=== PATIENT | female | born 1950 | race Caucasian/White ===

== ENCOUNTER → 2016-08-20 | Outpatient (CLI) | payer OTHER ==
[2016-08-20 17:43] LABS: BASO % 0.3 %; BASO ABS # 0.02 K/uL (0-0.2); COMPLETE YES; EOS % 1.9 %; HEMATOCRIT 41.7 % (37-47); IG% 0.3 %; LYMPH ABS # 1.49 K/uL (1.2-3.4); MEAN CELL VOLUME 98.8 fL (80-100); MEAN CORPUSCULAR HEMOGLOBIN 32.5 pg (25-34); MEAN CORPUSCULAR HGB CONC 32.9 g/dl (32-36); MEAN PLATELET VOLUME 12.6 fL (7.4-10.4); MONO % 8.8 %; NEUT % 66.7 %; PLATELET COUNT 225 K/uL (130-400); RED BLOOD COUNT 4.22 M/uL (4.2-5.4); WHITE BLOOD COUNT 6.78 K/uL (4.8-10.8)
[2016-08-20 17:52] LABS: BLOOD UREA NITROGEN 28 mg/dl (7-18); BUN/CREATININE RATIO 21.9 (10-20); CALCIUM 9.3 mg/dl (8.5-10.1); CARBON DIOXIDE 29 mmol/L (21-32); CHLORIDE 103 mmol/L (98-107); GLUCOSE 116 mg/dl (70-99); MAGNESIUM 1.5 mg/dl (1.8-2.4); POTASSIUM 3.4 mmol/L (3.5-5.1); SODIUM 141 mmol/L (136-145)
[2016-08-20 17:53] LABS: PHOSPHORUS 2.7 mg/dl (2.5-4.9)
[2016-08-20 18:04] LABS: URINE PROTIEN/CREAT RATIO 0.2 (0-0.2)
[2016-08-20 18:08] LABS: URINE APPEARANCE CLEAR (CLEAR); URINE BILIRUBIN NEG (NEG); URINE COLOR YELLOW; URINE EPITHELIAL CELL AUTO 20-30 /lpf (0-5); URINE NITRITE NEG (NEG); UROBILINOGEN NEG (NEG); ZZUR CULT IF INDIC CLEAN CATCH NO
[2016-08-20 18:15] LABS: MANUAL MICROSCOPIC REQUIRED? NO; REVIEW REQ? NO
== END | disposition home or self-care (01) ==
LOC: C.LABPBG 11:34
PROVIDERS: ATTEND Internal Medicine Nephrology
DX: N18.3 Chronic kidney disease, stage 3 (moderate) (principal)

== ENCOUNTER → 2016-09-29 | Outpatient (CLI) | payer OTHER | END | disposition home or self-care (01) | LOC: C.MAMM 10:40 | PROVIDERS: ATTEND Internal Medicine Nephrology | DX: E21.3 Hyperparathyroidism, unspecified (principal); M85.839 Other specified disorders of bone density and structure, unspecified forearm ==

== ENCOUNTER → 2017-02-23 | Outpatient (CLI) | payer OTHER ==
[2017-02-23 17:50] LABS: BASO % 0.3 %; BASO ABS # 0.02 K/uL (0-0.2); COMPLETE YES; EOS % 2.7 %; HEMATOCRIT 44.7 % (37-47); IG% 0.1 %; LYMPH % 18.5 %; LYMPH ABS # 1.36 K/uL (1.2-3.4); MEAN CELL VOLUME 99.3 fL (80-100); MEAN CORPUSCULAR HEMOGLOBIN 32.4 pg (25-34); MEAN CORPUSCULAR HGB CONC 32.7 g/dl (32-36); MONO % 10.3 %; NEUT % 68.1 %; PLATELET COUNT 217 K/uL (130-400); WHITE BLOOD COUNT 7.36 K/uL (4.8-10.8)
[2017-02-23 17:59] LABS: URINE APPEARANCE CLEAR (CLEAR); URINE BILIRUBIN NEG (NEG); URINE COLOR YELLOW; URINE EPITHELIAL CELL AUTO >30 /lpf (0-5); URINE NITRITE NEG (NEG); URINE PH 5.5 (4.5-7.5); UROBILINOGEN NEG (NEG); ZZUR CULT IF INDIC CLEAN CATCH NO
[2017-02-23 18:00] LABS: BLOOD UREA NITROGEN 39 mg/dl (7-18); BUN/CREATININE RATIO 30.2 (10-20); CALCIUM 9.3 mg/dl (8.5-10.1); CARBON DIOXIDE 24 mmol/L (21-32); CHLORIDE 108 mmol/L (98-107); GLUCOSE 91 mg/dl (70-99); MAGNESIUM 1.4 mg/dl (1.8-2.4); POTASSIUM 3.2 mmol/L (3.5-5.1); SODIUM 140 mmol/L (136-145)
[2017-02-23 18:01] LABS: PHOSPHORUS 2.3 mg/dl (2.5-4.9)
[2017-02-23 18:08] LABS: MANUAL MICROSCOPIC REQUIRED? NO; REVIEW REQ? NO
[2017-02-23 18:13] LABS: URINE PROTIEN/CREAT RATIO 0.2 (0-0.2); URINE TOTAL PROTEIN 28.7 mg/dl (0-11.9)
== END | disposition home or self-care (01) ==
LOC: C.LABPBG 11:16
PROVIDERS: ATTEND Internal Medicine Nephrology
DX: N18.3 Chronic kidney disease, stage 3 (moderate) (principal)

== ENCOUNTER → 2017-06-17 | Outpatient (CLI) | payer OTHER ==
[2017-06-17 12:03] LABS: BASO % 0.4 %; BASO ABS # 0.03 K/uL (0-0.2); EOS % 2.5 %; EOS ABS # 0.19 K/uL (0-0.5); HEMATOCRIT 43.6 % (37-47); HEMOGLOBIN 14.1 g/dL (12.0-16.0); IG# 0.01 K/uL (0.00-0.02); LYMPH % 18.6 %; MEAN CELL VOLUME 100.2 fL (80-100); MEAN CORPUSCULAR HEMOGLOBIN 32.4 pg (25-34); MEAN CORPUSCULAR HGB CONC 32.3 g/dl (32-36); MEAN PLATELET VOLUME 11.7 fL (7.4-10.4); MONO % 7.3 %; MONO ABS # 0.55 K/uL (0.11-0.59); NEUT % 71.1 %; NEUT ABS # 5.34 K/uL (1.4-6.5); PLATELET COUNT 257 K/uL (130-400); RED CELL DISTRIBUTION WIDTH CV 12.5 % (11.5-14.5); RED CELL DISTRIBUTION WIDTH SD 45.8 fL (36.4-46.3); WHITE BLOOD COUNT 7.52 K/uL (4.8-10.8)
[2017-06-17 12:38] LABS: BLOOD UREA NITROGEN 24 mg/dl (7-18); CALCIUM 9.4 mg/dl (8.5-10.1); CARBON DIOXIDE 31 mmol/L (21-32); CREATININE 1.11 mg/dl (0.60-1.20); GLUCOSE 99 mg/dl (70-99); POTASSIUM 3.9 mmol/L (3.5-5.1); SODIUM 138 mmol/L (136-145)
[2017-06-17 12:41] LABS: CHOLESTEROL 226 mg/dl (0-200); LDL CHOLESTEROL CALCULATED 118 mg/dl; PHOSPHORUS 2.6 mg/dl (2.5-4.9)
== END | disposition home or self-care (01) ==
LOC: C.LABPBG 09:40
PROVIDERS: ATTEND Internal Medicine Nephrology
DX: N18.3 Chronic kidney disease, stage 3 (moderate) (principal); E78.5 Hyperlipidemia, unspecified; E21.3 Hyperparathyroidism, unspecified

== ENCOUNTER → 2017-12-23 | Outpatient (CLI) | payer OTHER ==
[~2017-12-23] MED LIST: ACET-1256 PO; AMLO10TA4 PO; CALC-354 PO; CHOL20007 PO; DICY10CA12 PO; HYG/25 PO; MELO15TA10 PO; OMEP-334 PO; POTA1CAP53 PO; PRED1SUS3 OPL; VITACAP26 PO
[2017-12-23 16:55] LABS: BASO % 0.4 %; BASO ABS # 0.03 K/uL (0-0.2); EOS ABS # 0.16 K/uL (0-0.5); HEMATOCRIT 41.2 % (37-47); HEMOGLOBIN 13.7 g/dL (12.0-16.0); IG# 0.01 K/uL (0.00-0.02); LYMPH % 20.5 %; LYMPH ABS # 1.63 K/uL (1.2-3.4); MEAN CELL VOLUME 98.1 fL (80-100); MEAN CORPUSCULAR HEMOGLOBIN 32.6 pg (25-34); MEAN CORPUSCULAR HGB CONC 33.3 g/dl (32-36); MONO % 8.2 %; MONO ABS # 0.65 K/uL (0.11-0.59); NEUT % 68.8 %; NEUT ABS # 5.47 K/uL (1.4-6.5); PLATELET COUNT 234 K/uL (130-400); RED CELL DISTRIBUTION WIDTH CV 12.7 % (11.5-14.5); RED CELL DISTRIBUTION WIDTH SD 45.6 fL (36.4-46.3); WHITE BLOOD COUNT 7.95 K/uL (4.8-10.8)
[2017-12-23 18:04] LABS: BLOOD UREA NITROGEN 32 mg/dl (7-18); CALCIUM 9.2 mg/dl (8.5-10.1); CARBON DIOXIDE 27 mmol/L (21-32); CREATININE 1.25 mg/dl (0.60-1.20); GLUCOSE 90 mg/dl (70-99); PHOSPHORUS 2.7 mg/dl (2.5-4.9); POTASSIUM 3.7 mmol/L (3.5-5.1); SODIUM 138 mmol/L (136-145)
== END | disposition home or self-care (01) ==
LOC: C.LABPBG 11:35
PROVIDERS: ATTEND Internal Medicine Nephrology
DX: N18.3 Chronic kidney disease, stage 3 (moderate) (principal)

== ENCOUNTER 2019-01-11 10:11 | Inpatient (IN) ==
--- NOTE | 2018-12-20 12:56 | PAT Medication Instructions ---
Medication Instructions Date of Service December 20, 2018 Home Medications acetaminophen [Tylenol Extra Strength] 500 mg PO Q6H PRN amlodipine 10 mg PO QAM ascorbic acid (vitamin C) 1 g PO DAILY calcium carbonate-vitamin D3 1 tab PO DAILY cholecalciferol (vitamin D3) 2,000 unit PO DAILY dicyclomine 10 mg PO TID meloxicam 15 mg PO 3XWK omeprazole 40 mg PO QAM prednisolone acetate 1 drp OPHTHALMIC (EYE) DAILY ASK your surgeon for instructions meloxicam 15 mg PO 3XWK DO NOT take the morning of surgery ascorbic acid (vitamin C) 1 g PO DAILY calcium carbonate-vitamin D3 1 tab PO DAILY cholecalciferol (vitamin D3) 2,000 unit PO DAILY dicyclomine 10 mg PO TID Take morning of surgery With a small sip of water, OTHERWISE NOTHING TO EAT OR DRINK AFTER MIDNIGHT: acetaminophen [Tylenol Extra Strength] 500 mg PO Q6H PRN (if needed, may be taken up to four hours before surgery) amlodipine 10 mg PO QAM omeprazole 40 mg PO QAM prednisolone acetate 1 drp OPHTHALMIC (EYE) DAILY Take evening before surgery acetaminophen [Tylenol Extra Strength] 500 mg PO Q6H PRN (if needed) dicyclomine 10 mg PO TID Other Notes If you have any questions please call us at [phone] or [phone] or [phone] or [phone]
--- NOTE | 2018-12-20 15:08 | Anesthesiology Consultation ---
Date of Service December 20, 2018 Assessment & Plan (1) Encounter for pre-operative examination: Chart Review Chart Review: Acceptable Risk for Surgery and Patient seen in Pre Admission Testing Teaching & Discussion Instructed NPO after midnight before surgery, except medications with 15 cc of water. Medication instructions provided according to the PAT guidelines. History Surgery Operation Date: 01/11/19 08:50 Proposed Procedures p Left Total Knee Arthroplasty - Edy Turner MD Height/Weight Height: 5 ft 1 in Weight: 75.3 kg Allergies Allergy/AdvReac Type Severity Reaction Status Date / Time Sulfa (Sulfonamide Allergy Unknown SULFA EYE Verified 12/17/18 14:52 Antibiotics) DROP - EYE REDNESS Medications Home Medications Medication Instructions Recorded Confirmed Last Taken acetaminophen [Tylenol Extra 500 mg PO Q6H PRN 12/17/18 12/17/18 Unknown Strength] amlodipine 10 mg PO QAM 12/17/18 12/17/18 12/17/18 ascorbic acid (vitamin C) [Vitamin 1 g PO DAILY 12/17/18 12/17/18 Unknown C] calcium carbonate-vitamin D3 1 tab PO DAILY 12/17/18 12/17/18 Unknown [Caltrate 600 + D] cholecalciferol (vitamin D3) 2,000 unit PO DAILY 12/17/18 12/17/18 Unknown [Vitamin D3] dicyclomine 10 mg PO TID 12/17/18 12/17/18 12/17/18 meloxicam 15 mg PO 3XWK 12/17/18 12/17/18 Unknown omeprazole 40 mg PO QAM 12/17/18 12/17/18 12/17/18 prednisolone acetate 1 drp OPHTHALMIC (EYE) DAILY 12/17/18 12/17/18 Unknown potassium chloride [Klor-Con 10] 10 meq PO QAM 12/20/18 12/20/18 Unknown Past Medical History Medical History Acid reflux Blindness of left eye Hypertension IBS (irritable bowel syndrome) Kidney disease STAGE 3 Osteoarthritis Exercise / Class Metabolic Activity II 4-5 Yardwork/Stairs/Walk up hill (Denies CP or SOB with 1 FOS, goes slowly 2/2 knee pain) Past Family History Family History Mother Family history of lymphoma Past Surgical History Surgical History History of colonoscopy 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 History of eye surgery 8 TOTAL OF THE LEFT History of tonsillectomy History of total hysterectomy Past Anesthesia History No Hx of Anesthesia Complications and No Family Hx of Anesthesia Complications History of PONV No Hx of PONV and Hx of Motion Sickness Social History Smoking Status: Former smoker Do You Dip or Chew Tobacco: No Smoking End Date: QUIT 11 YR AGO Hx Alcohol Use: Yes alcohol intake frequency: a few times a month (once/week) Hx Substance Use: No substance use type: does not use Review of Systems Pt denies any recent chest pain, shortness of breath, palpitations, cough, fever or URI. Physical Exam Vital Signs BP: 128/68 P: 84bpm SPO2: 95% RA T: 97.8 F R: 12 ENMT Mouth: + dentures and + edentulous Thyromental Distance: > or= 3.5 Finger Breadths (4) Mallampati Class: I Asymmetry of eyes. Neck normal visual inspection; neck extension not limited Respiratory normal respiratory effort Auscultation: lungs clear to auscultation bilaterally Cardiovascular Rate/Rhythm: regular rate and regular rhythm Heart Sounds: no murmur Vessels: no carotid bruit Extremities: no edema Testing Laboratory Results 12/20/18 15:15 12/20/18 15:15 PT 10.0 Seconds (9.0-12.0) 12/20/18 15:15 INR 1.0 (0.9-1.1) 12/20/18 15:15 APTT 27.2 Seconds (21.0-31.0) 12/20/18 15:15 Blood Type O Positive 12/20/18 15:15 Antibody Screen NEGATIVE 12/20/18 15:15 Electrocardiogram Date: 12/20/18 Findings: + NSR @ (69 with sinus arrhythmia) Chest X-Ray Date: 12/20/18 Findings: + NAD
--- NOTE | 2018-12-20 16:04 | XRay Report ---
XR chest Pre-admission PA/Lat CLINICAL HISTORY: PAT preoperative COMPARISON STUDY: No previous studies for comparison. FINDINGS: The bones soft tissues and hemidiaphragms are normal. The cardiomediastinal silhouette is n ormal. The lungs are clear. The pulmonary vasculature is normal. IMPRESSION: Negative chest. The above report was generated using voice recognition software. It may contain grammatical, syntax or spelling errors. Electronically signed by: Blade Barrios M.D. 12/20/2018 4:03 PM
[2018-12-20 16:21] LABS: Basophils # (auto) 0.02 K/uL (0-0.2); Basophils % (auto) 0.3 %; Eosinophils # (auto) 0.08 K/uL (0-0.5); Eosinophils % (auto) 1.1 %; Hematocrit (blood only) 41.8 % (37-47); Hemoglobin 14.1 g/dL (12.0-16.0); Immature Granulocytes # (auto) 0.03 K/uL (0.00-0.02); Immature Granulocytes % (auto) 0.4 %; Lymphocytes # (auto) 1.44 K/uL (1.2-3.4); Lymphocytes % (auto) 19.8 %; Mean Corpuscular Hgb Conc 33.7 g/dL (32-36); Mean Corpuscular Volume 98.6 fL (80-100); Monocytes % (auto) 8.2 %; Neutrophils # (auto) 5.12 K/uL (1.4-6.5); Neutrophils % (auto) 70.2 %; Platelet Count 244 K/uL (130-400); RDW Coefficient of Variation 12.7 % (11.5-14.5); RDW Standard Deviation 45.9 fL (36.4-46.3); Red Blood Count 4.24 M/uL (4.2-5.4); White Blood Count 7.29 K/uL (4.8-10.8)
[2018-12-20 16:30] LABS: BUN Creatinine Ratio 20.2 (10-20); Calcium 9.3 mg/dl (8.5-10.1); Creatinine Clr Calc Pharmacy 39.2 ml/min; Est GFR (African American) 49.1; Est GFR (Non-African American) 42.3; Potassium 3.3 mmol/L (3.5-5.1)
[2018-12-20 16:39] LABS: Partial Thromboplastin Time 27.2 Seconds (21.0-31.0)
--- NOTE | 2019-01-07 11:21 | History and Physical Report ---
DATE OF ADMISSION: 01/11/2019 CHIEF COMPLAINT: Persistent left knee pain, discomfort, and instability. HISTORY OF PRESENT ILLNESS: The patient is a 68-year-old white female referred to me by my partner Dr. Lee for surgical treatment of her left knee. She has a long history of left knee pain and discomfort that has just gradually gotten worse over the past several years. She does have a remote history of a knee injury and discomfort 2 years ago, but nothing that really needed much intervention. Over the past several years, she has developed increased pain, discomfort, and instability in her knee. It is global pain. The more she walks, the more it hurts. She says she limps all the time, but it gets worse as the day goes on. 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 The knee becomes stiffer as she walks. She has been through extensive conservative treatment including medicines and injections which do not help much at all. She does have limited kidney function and cannot take NSAIDs as a result. Despite this, she continues to take meloxicam intermittently. PAST MEDICAL HISTORY: 1. Hypertension. 2. Gastroesophageal reflux disease. 3. Low back pain/sciatica. 4. Kidney stones. 5. Stage III kidney disease. Creatinine 1.31. PAST SURGICAL HISTORY: Include, 1. Eye surgery. 2. Tonsillectomy. 3. Hysterectomy. ALLERGIES: SULFA. CURRENT MEDICINES: Include, 1. Prednisone eyedrops. 2. Amlodipine 10 mg. 3. Omeprazole 40 mg a day. 4. Dicyclomine 10 mg 3 times. 5. Chlorthalidone 25 mg. 6. Meloxicam 15 mg 3 times a week. 7. Caltrate 600 mg with D. 8. Vitamin C. 9. Vitamin D3. 10. Tylenol Extra Strength. 11. Potassium. SOCIAL HISTORY: A 68-year-old white female. She does not smoke. One drink per week. 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 FAMILY HISTORY: Noncontributory. REVIEW OF SYSTEMS: Significant for stage III kidney disease. Denies any current chest pain or shortness of breath. No history of DVT or PE. No known bleeding problems. PHYSICAL EXAMINATION: GENERAL: Reveals a pleasant middle-aged female, who looks to be in pretty good health. HEENT: Benign. NECK: Supple, no lymphadenopathy. LUNGS: Clear to auscultation. HEART: Regular rate and rhythm. ABDOMEN: Soft, nontender, nondistended. EXTREMITIES: Grossly neurovascularly intact except as follows: Examination of the left knee reveals patient walks with a stiff knee gait. She holds her knee pretty straight with weightbearing. She does have a varus thrust with weightbearing. She has got bony hypertrophy medially. Small knee effusion. Range of motion is 5 degrees short of full extension to 115 degrees of flexion. There is no instability. Does have some pseudolaxity to varus valgus testing. X-RAYS: X-rays of the left knee reviewed. Shows advanced left knee DJD. She has significant and complete loss of her medial joint space with tibiofemoral subluxation and some destruction of her medial tibial plateau. She has got osteophytes in all 3 compartments. ASSESSMENT: A 68-year-old white female with advanced left knee degenerative joint disease. She has failed conservative care. Cannot take NSAIDs due to underlying kidney disease. PLAN: We talked about treatment. We are going to proceed with left knee replacement. The risks and benefits of this procedure were explained to the patient including but not limited to DVT, PE, , infection, neurological injury, vascular injury, bleeding problem, pain, limited range of motion, stiffness, failure to relieve symptoms, incomplete relief of symptoms, need for further surgery in future, fracture, leg length inequality, nerve palsy, etc. The patient understands and desires to proceed. Informed consent was obtained. We are going to have her stop her meloxicam. We will likely use just a baby aspirin postoperatively but we are going to hold all other NSAIDs in the perioperative period. We will keep an eye on her creatinine. As far as discharge plans, she is planning to be discharged home likely with some home health.
[~2019-01-11 10:11] MED LIST changes: -ACET-1256 PO; +ACETAMINOPHEN 500 MG TAB PO SCH; -AMLO10TA4 PO; +BUPIVACAINE 0.5 % 5 MG/1 ML PF 10ML VIAL ONE; +BUPIVACAINE LIPOSOME/PF 266 MG, BUPIVACAINE/EPINEPHRINE 50 ML, SODIUM CHLORIDE 0.9% 30 ... INFIL SCH; -CALC-354 PO; +CEFAZOLIN 2000MG 2,000 MG/15 ML SYR IV SCH; -CHOL20007 PO; -DICY10CA12 PO; +EPINEPHrine INJ 1 MG/ML AMP ONE; +FAMOTIDINE 20 MG TAB PO SCH; +GABAPENTIN 300 MG CAP PO SCH; -HYG/25 PO; +LR 500ML BOLUS, THEN 15ML/HR IV SCH; +LR 60ML/HR IV SCH; -MELO15TA10 PO; +METOCLOPRAMIDE HCL 10 MG TABLET PO SCH; -OMEP-334 PO; -POTA1CAP53 PO; -PRED1SUS3 OPL; +ROPIVACAINE 0.5% 5 MG/ML 30 ML VIAL ONE; +SCOPOLAMINE 1.5 MG TDSY TD SCH; +TRANEXAMIC ACID 1,000 MG **IV Intra-op IV SCH; -VITACAP26 PO
[2019-01-11] MEDS ORDERED: MIDAZOLAM HCL 1 MG/ML 2ML VIAL ONE (10:43)
[2019-01-11] MEDS ORDERED: ONDANSETRON INJ 2 MG/ML 2 ML VIAL ONE (10:43)
[2019-01-11] MEDS ORDERED: PROPOFOL IV EMULSION 10 MG/ML 20 ML VIAL IV ONE ×4 (10:43→14:16)
[2019-01-11] MEDS ORDERED: fentaNYL citrate 100 MCG/2 ML VIAL ONE (10:44)
--- NOTE | 2019-01-11 11:18 | History & Physical Bridge Note ---
Date of Service January 11, 2019 History & Physical Bridge Note I have examined the patient, reviewed the History & Physical and in the interval since the performance of the History & Physical I have noted the following changes of clinical significance: no changes noted
[2019-01-11] MEDS ORDERED: BUPIVACAINE 0.25% 30 ML VIAL ONE (12:59)
[2019-01-11] MEDS ORDERED: BACITRACIN INJ 50,000 UNIT VIAL ONE (13:01)
[2019-01-11] MEDS ORDERED: SODIUM CHLORIDE 0.9% PF 50 ML VIAL ONE (13:01)
[2019-01-11] MEDS ORDERED: BUPIVACAINE LIPOSOME 1.3% 266 MG/20 ML VIAL ONE (13:01)
[2019-01-11] MEDS ORDERED: BUPIVACAINE/EPINEPHRINE 0.25% 1:200,000 30 ML VIAL ONE (13:05)
[2019-01-11] MEDS ORDERED: fentaNYL citrate 100 MCG/2 ML VIAL IV PRN (13:08)
[2019-01-11] MEDS ORDERED: ATROPINE SULFATE 0.1 MG/ML 10ML SYR IV PRN (13:08)
[2019-01-11] MEDS ORDERED: ONDANSETRON INJ 2 MG/ML 2 ML VIAL IV PRN ×2 (13:08→16:32)
[2019-01-11] MEDS ORDERED: ePHEDrine sulfate 50 MG/ML AMP IV PRN (13:08)
[2019-01-11] MEDS ORDERED: PHENYLEPHRINE 100MCG/ML 5ML SYR ONE (14:16)
[2019-01-11] MEDS ORDERED: ePHEDrine sulfate 50 MG/ML SYR ONE (14:16)
[2019-01-11] MEDS ORDERED: LIDOCAINE HCL 2% 2 ML VIAL/AMP(20MG/ML) INFIL ONE (14:16)
--- NOTE | 2019-01-11 15:25 | Post Operative Brief Note ---
PG Immediate Post Op with CF Date of Surgery January 11, 2019 Pre & Post Diagnosis Operation Date: 01/11/19 12:30 Pre-Op Diagnosis: Left knee Degenerative Joint Disease Post-Op Diagnosis: Left knee Degenerative Joint Disease Procedure Operation Date: 01/11/19 12:30 Actual Procedures p Left Total Knee Arthroplasty(Left) - Edy Turner MD Surgeon Edy Turner MD Teaching Music Lessons Ziyad, PAC Estimated Blood Loss 50 Findings Consistent with Post-Op Diagnosis Fluids 1700 cc Specimens Specimen Description: A: Left Knee Bone and Tissue Drains Jiang Catheter Anesthesia Type Spinal MAC Complications none Disposition Accompanied Patient To Recovery: No Disposition: Recovery Room
--- NOTE | 2019-01-11 15:59 | XRay Report ---
XR knee LT 2V routine CLINICAL HISTORY: 68 years-old Female presenting with Surgical Post Op. TECHNIQUE: Frontal and lateral views of the left knee were obtained. COMPARISON: None. FINDINGS: Postsurgical changes of total left knee arthroplasty with patellar resurfacing. Expected intra-articu lar and soft tissue emphysema. Overlying skin deborah. No periprosthetic fracture or lucency. No donnie lignment. IMPRESSION: Expected postsurgical appearance status post total left knee arthroplasty with patellar resurfacing. Electronically signed by: Lawrence Vines M.D. 01/11/2019 3:57 PM
--- NOTE | 2019-01-11 16:18 | Anesthesiology Progress Note ---
Date of Service January 11, 2019 Anesthesia Post Procedure Vital Signs Vital Signs: Temp Pulse Pulse Resp BP Pulse Ox 01/11/19 16:10 36.2 C L 84 16 130/68 95 01/11/19 16:00 78 13 122/65 92 01/11/19 15:50 82 17 127/64 96 01/11/19 15:40 83 16 123/58 L 95 01/11/19 15:30 36.0 C L 84 19 115/57 L 92 01/11/19 10:34 36.5 C 94 H 18 156/86 H 97 Transfer of Care Handoff Completed per policy Notes Mental Status: alert / awake / arousable Patient Amnestic to Procedure: Yes Nausea / Vomiting: adequately controlled Pain: adequately controlled Airway Patency, RR, SpO2: stable & adequate BP & HR: stable & adequate Hydration State: stable & adequate Neuraxial Anesthesia: was administered and sensory block is resolving Anesthetic Complications: no major complications apparent and Pt Satisfied with anesthetic care
[2019-01-11] MEDS ORDERED: METOCLOPRAMIDE HCL INJ 5 MG/ML 2 ML VIAL IV PRN (16:32)
[2019-01-11] MEDS ORDERED: HYDROmorphone INJ 0.5 MG/0.5 ML SYR IV PRN (16:32)
[2019-01-11] MEDS ORDERED: MAGNESIUM HYDROXIDE SUSP 30 ML UDC PO PRN (16:32)
[2019-01-11] MEDS ORDERED: ALUMINUM/MAGNESIUM SUSP 30 ML UDC PO PRN (16:32)
[2019-01-11] MEDS ORDERED: BISACODYL 10 MG SUPP PR PRN (16:32)
[2019-01-11] MEDS ORDERED: NALOXONE HCL 0.4 MG/1 ML VIAL/CARP IV PRN (16:32)
[2019-01-11] MEDS: SODIUM CHLORIDE 0.9% 1000ML 1,000 ML IV SCH (16:59)
[2019-01-11] MEDS: CHECK SCOPOLAMINE PATCH PLACEMENT SCH (17:01)
[2019-01-11] MEDS: FERROUS GLUCONATE 324 MG TAB PO SCH (17:05)
[2019-01-11] MEDS: ASCORBIC ACID 500 MG TAB PO SCH (17:05)
--- NOTE | 2019-01-11 19:09 | Progress Note ---
DATE: 01/11/2019 SUBJECTIVE: A 68-year-old white female postop from a left knee replacement. She is doing well. Pain is controlled. Denies any chest pain or shortness of breath. Not feeling dizzy or lightheaded. OBJECTIVE: VITAL SIGNS: Temperature 36.5. Vital signs stable. GENERAL: Reveals a pleasant, middle-aged female. She is sitting up in bed and looks comfortable. She is talking to her . LUNGS: Clear to auscultation. HEART: Regular rate and rhythm. ABDOMEN: Soft, nontender, nondistended. EXTREMITIES: Grossly neurovascularly intact except as follows: Examination of the left lower extremity reveals the leg to be well aligned. Dressing is clean, dry and intact. She can dorsiflex and plantarflex her foot appropriately. She is neurologically intact. X-RAYS: X-rays of the left knee from recovery room were reviewed. It shows left cemented posterior stabilized total knee arthroplasty. The components looked to be in good position. No signs of problems. ASSESSMENT: A 68-year-old white female postoperative day #1 from left knee replacement, doing well. Pain is controlled. She is neurologically intact. PLAN: 1. DVT prophylaxis including thigh-high TEDs, SCDs, and aspirin twice daily. 2. PT/OT. Weight bear as tolerated. Left total knee protocol. 3. Pain control, doing pretty well with current pain regimen. 4. IV antibiotics x24 hours. 5. Disposition: Plan to discharge her home likely with some home health once adequately recovered.
[2019-01-11] MEDS ORDERED: PNEUMOCOCCAL POLYSACCHARIDES 25 MCG/0.5 ML VIAL/SYR IM ONE (19:45)
[2019-01-11] MEDS ORDERED: PNEUMOCOCCAL ADMINISTRATION CHARGE ONE (19:45)
[2019-01-11] MEDS ORDERED: SENNA 8.6 MG TAB PO SCH (21:00)
[2019-01-11] MEDS ORDERED: TRANEXAMIC ACID 1,000 MG in 0.9 % SODIUM CHLORIDE 100 ML IV SCH (21:26)
[2019-01-11] MEDS: DICYCLOMINE HCL 10 MG CAP PO SCH (21:30)
[2019-01-11] MEDS: DOCUSATE SODIUM 100 MG CAP PO SCH (21:30)
[2019-01-11] MEDS: ASPIRIN 81 MG ECTAB PO SCH (21:30)
[2019-01-11] MEDS: ACETAMINOPHEN 500 MG TAB PO SCH (21:31)
[2019-01-11] MEDS: CEFAZOLIN 1000MG 1,000 MG/7.5 ML SYR IV SCH (21:35)
[2019-01-12] MEDS: CHECK SCOPOLAMINE PATCH PLACEMENT SCH (00:13)
[2019-01-12] MEDS: SODIUM CHLORIDE 0.9% 1000ML 1,000 ML IV SCH (02:51)
[2019-01-12] MEDS: CEFAZOLIN 1000MG 1,000 MG/7.5 ML SYR IV SCH (06:02)
[2019-01-12] MEDS: ACETAMINOPHEN 500 MG TAB PO SCH ×2 (06:02→13:20)
[2019-01-12] MEDS: TRAMADOL HCL 50 MG TABLET PO PRN ×2 (06:10→13:21)
[2019-01-12 06:52] LABS: Hematocrit (blood only) 36.1 % (37-47); Hemoglobin 12.4 g/dL (12.0-16.0); Mean Corpuscular Hgb Conc 34.3 g/dL (32-36); Mean Corpuscular Volume 98.4 fL (80-100); Mean Platelet Volume 10.2 fL (7.4-10.4); Platelet Count 224 K/uL (130-400); RDW Coefficient of Variation 12.4 % (11.5-14.5); Red Blood Count 3.67 M/uL (4.2-5.4); White Blood Count 11.62 K/uL (4.8-10.8)
[2019-01-12 07:14] LABS: BUN Creatinine Ratio 12.7 (10-20); Calcium 8.9 mg/dl (8.5-10.1); Creatinine Clr Calc Pharmacy 51.2 ml/min; Est GFR (Non-African American) 58.7; Potassium 3.1 mmol/L (3.5-5.1)
--- NOTE | 2019-01-12 07:32 | Anesthesiology Progress Note ---
Date of Service January 12, 2019 Anesthesia Post Procedure Vital Signs Vital Signs: Temp Pulse Pulse Resp BP Pulse Ox 01/12/19 02:52 36.3 C L 82 16 115/67 96 01/11/19 22:51 36.5 C 85 16 135/80 97 01/11/19 19:39 36.5 C 97 H 18 116/66 91 01/11/19 17:57 36.2 C L 01/11/19 17:31 35.8 C L 81 17 138/73 95 01/11/19 17:02 84 16 143/80 H 96 01/11/19 16:38 36.2 C L 81 16 144/79 H 94 01/11/19 16:10 36.2 C L 84 16 130/68 95 01/11/19 16:00 78 13 122/65 92 01/11/19 15:50 82 17 127/64 96 01/11/19 15:40 83 16 123/58 L 95 01/11/19 15:30 36.0 C L 84 19 115/57 L 92 01/11/19 10:34 36.5 C 94 H 18 156/86 H 97 Notes Mental Status: alert / awake / arousable and participated in evaluation Patient Amnestic to Procedure: Yes Nausea / Vomiting: improving with treatment Pain: adequately controlled Airway Patency, RR, SpO2: stable & adequate BP & HR: stable & adequate Hydration State: stable & adequate Neuraxial Anesthesia: was administered and sensory block resolved Anesthetic Complications: no major complications apparent and Pt Satisfied with anesthetic care
[2019-01-12] MEDS: DICYCLOMINE HCL 10 MG CAP PO SCH ×2 (08:09→13:20)
[2019-01-12] MEDS: DOCUSATE SODIUM 100 MG CAP PO SCH (08:09)
[2019-01-12] MEDS: ASCORBIC ACID 500 MG TAB PO SCH (08:09)
[2019-01-12] MEDS: ASPIRIN 81 MG ECTAB PO SCH (08:09)
[2019-01-12] MEDS: FERROUS GLUCONATE 324 MG TAB PO SCH (08:09)
--- NOTE | 2019-01-12 08:09 | Operative Report ---
DATE OF OPERATION: 01/11/2019 SURGEON: Edy Turner MD BACKBREAKER: MARLA Valenzuela PREOPERATIVE DIAGNOSIS: Left knee degenerative joint disease. POSTOPERATIVE DIAGNOSIS: Left knee degenerative joint disease. PROCEDURE PERFORMED: Left cemented posterior stabilized total knee arthroplasty. COMPLICATIONS: None. ESTIMATED BLOOD LOSS: 50 mL. FLUID REPLACEMENT: 1700 mL crystalloid fluid replacement. TOURNIQUET TIME: 54 minutes at 300 mmHg. ANESTHESIA: Spinal with adductor canal block. DRAINS: None. SPECIMENS: Left knee sent for pathology. OPERATIVE INDICATIONS: The patient is a 68-year-old female who has had a long history of left knee pain and discomfort that has gradually gotten worse over time. She got to the point where she is having trouble getting around. 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 She has been through extensive conservative treatment including injections which have become less successful over time. She elected to proceed with total knee replacement. OPERATIVE FINDINGS: Operative findings revealed advanced left knee DJD. She had extensive grade 4 [id number] disease of the medial compartment with a pretty significant lateral compartment disease as well with an area where the intercondylar notch was worn through the cartilage of the femoral condyle. She had a varus deformity to her knee. She had tibial femoral subluxation. A 10-degree flexion contracture. Large knee joint effusion. OPERATIVE IMPLANTS: Operative implants consisted of: 1. Biomet Vanguard size 65 left posterior stabilized femoral component. 2. A Biomet size 67 tibial tray. 3. A 10 mm posterior stabilized polyethylene insert. 4. A 31 x 8 all poly patella. OPERATIVE PROCEDURE: The patient was taken to the operating room, identified and placed on the operating table in supine position. All contact areas were appropriately padded. IV antibiotics provided by anesthesia team. Spinal anesthetic and adductor canal block had been provided in the holding area. Jiang catheter was placed in sterile fashion. Left thigh tourniquet was then placed and left lower extremity was then prepped and draped in usual sterile fashion. Left leg was elevated and exsanguinated with an Esmarch and tourniquet was placed at 300 mmHg. An anterior approach to the left knee was then performed through a longitudinal incision centered over the patella. Sharp dissection was carried through subcutaneous tissue down below the extensor mechanism. A medial parapatellar arthrotomy incision was made. Some subperiosteal dissection was carried out medially. Several bone fragments were removed from the fragmentation of the medial tibial plateau. The fat pad was resected from behind the patellar tendon. The patella was everted and knee was flexed. The osteophytes were taken off the distal femur. The ACL and PCL were released from the distal femur. The tibia subluxated anteriorly. External tibial alignment jig was then placed in the anterior face of the tibia and adjusted 16 mm medially. Proximal tibial cut was made to remove about a millimeter or 2 of bone from most deficient aspect of the medial tibial plateau. The tibia was then sized to a size 67. We took some osteophytes off medial and posteromedially. Attention was then drawn to the femur. The distal femur was entered with a sharp drill bit. Intramedullary canal was suctioned. A left 5-degree valgus cutting guide was placed. Distal femoral cutting block was pinned in place. Distal femoral cut was made to take an additional 3 mm of bone off distal femur. The femur was then sized to a size 65. We did downsize this slightly. The AP cutting block was pinned parallel to the epicondylar axis, which was 4 degrees of external rotation. The anterior cut, anterior chamfer cut, posterior cut, posterior chamfer cuts were made. Box cutting guide was placed and adjusted slightly lateral and box cut was made. The knee was flexed. The remnants of medial and lateral menisci were excised. The osteophytes were taken off the posterior aspect of the femur. Trial femoral component was placed. Tibial tray was pinned in maximum external rotation and the drill and stem punch were used to create defect in proximal tibia for the tibial tray. The knee was then trialed and the 10 mm insert fit most appropriately. Attention was then drawn to the patella. The patella was cleaned of all soft tissues. Patella thickness measured 22 mm in thickness, it was cut down to 13. It was sized to a size 31 patella. Lug holes were drilled for 31 patella. Lateral osteophyte was removed. Patella button was placed. Knee was taken through range of motion, patella tracked nicely with no thumbs test. Attention was then drawn toward placement of permanent components. All trial components were removed. A bone plug was placed in the distal femur to limit blood loss. A double batch of Palacos G cement was mixed. A Biomet Vanguard size 65 left posterior stabilized femoral component, Biomet size 67 tibial tray, 10 mm posterior stabilized polyethylene insert, and a 31 x 8 all poly patella then cemented in place. Knee was brought into full extension until cement hardened. A final cement check was then performed. Pericapsular tissues were injected with a total of 100 mL of combination of 20 mL Exparel, 30 mL of normal saline, 50 mL of 0.25% Marcaine with epinephrine. The patient did receive 1 gram of tranexamic acid. The tourniquet was then let down for a tourniquet time of 54 minutes. Hemostasis was assured using electrocautery. The wound was once again irrigated. The extensor mechanism was then closed with combination of #1 PDS suture and #1 Vicryl suture in a [id number] fashion. Extensor mechanism was checked and found to be intact. The subcutaneous tissue was then closed with #2 Dexon suture in a buried interrupted fashion. Skin was closed with skin deborah. Leg was then cleaned, dried and a sterile dressing of Xeroform, 4 x 4, sterile cast padding and Meño bandage were applied. The patient then transferred to the recovery room in stable condition. The patient tolerated the procedure well with no complications. All needle and sponge counts were correct at the end of the operation. I attest to the content of the Intraoperative Record and any orders documented therein. Any exception s are noted below.
[2019-01-12] MEDS ORDERED: AMLODIPINE BESYLATE 5 MG TAB PO SCH (09:00)
[2019-01-12] MEDS ORDERED: CHOLECALCIFEROL 1,000 UNITS TAB PO SCH (09:00)
[2019-01-12] MEDS ORDERED: MULTIVITAMIN TAB PO SCH (09:00)
[2019-01-12] MEDS ORDERED: NON-FORMULARY MEDICATION (Ascorbic Acid (Vitamin C) [Vitamin C] 1 GM) PO SCH (09:00)
[2019-01-12] MEDS ORDERED: POTASSIUM CHLORIDE 10 MEQ TABCR PO SCH (09:00)
[2019-01-12] MEDS ORDERED: prednisoLONE acetate 1% OP SUSP 5 ML BTL OP SCH (09:00)
[2019-01-12] MEDS ORDERED: PANTOprazole 40 MG TAB PO SCH (09:00)
[2019-01-12] MEDS ORDERED: CALCIUM 600MG + VIT D 400 IU TAB PO SCH (09:00)
--- NOTE | 2019-01-12 15:25 | Progress Note ---
DATE: 01/12/2019 SUBJECTIVE: A 68-year-old white female postop day #1 from left knee replacement. Having some pain, but manageable with pain medicines. No chest pain or shortness of breath. Not feeling dizzy or lightheaded. She is really wanting to go home today. OBJECTIVE: VITAL SIGNS: Temperature 36.4. Vital signs stable. GENERAL: Physical examination shows a pleasant, middle-aged female. She is sitting up in her bedside chair, looks reasonably comfortable. EXTREMITIES: Examination of the left leg reveals the dressing to be clean, dry and intact. She can dorsiflex and plantarflex her foot appropriately. She is neurologically intact. LABORATORY DATA: Hemoglobin 12.4. Hematocrit 36.1. Electrolytes are stable. She does have some chronic hypokalemia. PLAN: 1. DVT prophylaxis including thigh-high TEDs, SCDs, and aspirin twice a day. 2. PT/OT. Weight bear as tolerated. Left total knee protocol. 3. Pain control, doing pretty well with current pain regimen. 4. Hypokalemia. We will continue potassium supplementation. She can follow up with her medical doctor as an outpatient. 5. Disposition: Plan to discharge to home with some home health likely later today.
--- NOTE | 2019-01-18 15:27 | Discharge Summary ---
ADMITTING DIAGNOSIS: Left knee degenerative joint disease. SURGERY PERFORMED: Left total knee arthroplasty. SECONDARY DIAGNOSES: Hypertension, gastroesophageal reflux disease, low back pain, sciatica, kidney stones, stage III kidney disease. CONSULTS: None obtained. HISTORY AND PHYSICAL EXAMINATION: Well documented in the patient's chart. HOSPITAL COURSE: The patient was admitted on 01/28/2019, underwent total knee arthroplasty, tolerated the procedure well. There were no complications. She was transferred to the PACU postoperatively and later to the orthopedic floor for further care. She was given Ancef for antibiotic prophylaxis, WANDER stockings, SCDs and aspirin for DVT prophylaxis. Hemoglobin, hematocrit and vital signs were monitored during her hospital stay and remained stable. She did not require any blood transfusions. There were no complications. On postoperative day 1, she was tolerating a regular diet, pain was controlled with oral pain medicine. She was participating in physical therapy. Postop day 1, she was discharged home, set up with home health services. She was given printed discharge instructions including new prescriptions for extra-strength Tylenol, aspirin and tramadol. Continue her home medications with the exception of Tylenol, which was changed. Continue physical therapy, weightbearing as tolerated, WANDER stockings. Follow up approximately 2 weeks postop or sooner if there are any problems or concerns.
== END 2019-01-12 14:26 | disposition home health service (06) | DRG 470 ==
LOC: ASU 10:11 → 3E 15:30